=== PATIENT | female | born 1985 | race African-American/Black ===

== ENCOUNTER 2020-04-01 07:07 | Observation (INO) | payer MEDICAID, OTHER ==
[~2020-04-01] VITALS: Ht 165.1 cm; Wt 123.8 kg
[2020-04-01] MEDS ORDERED: PREN-96 PO (07:38)
== END 2020-04-01 10:04 | disposition home or self-care (01) | DRG 566 ==
LOC: LDRP 07:07
PROVIDERS: ADMIT Specialist; ATTEND Specialist
DX: O42.92 Full-term premature rupture of membranes, unspecified as to length of time between rupture and onset of labor (principal); Z3A.37 37 weeks gestation of pregnancy
CPT/HCPCS: 59025; 76818; 84112; G0378; Q0114

== ENCOUNTER 2020-04-02 04:25 | Inpatient (IN) | payer MEDICAID ==
[~2020-04-02] VITALS: Ht 165.1 cm; Wt 125.2 kg
[~2020-04-02 04:25] MED LIST: PREN-96 PO
[2020-04-02] MEDS ORDERED: LACT. RINGERS/OXYTOCIN 20UNITS 1,000 ML IV SCH (04:55)
[2020-04-02] MEDS ORDERED: METHYLERGONOVINE MALEATE 0.2 MG/ML AMP IM PRN (05:00)
[2020-04-02] MEDS ORDERED: LIDOCAINE 2%HCL (LOCAL ANESTH.) INJ 20ML MDV ID ONE (05:00)
[2020-04-02] MEDS ORDERED: DERMOPLAST 60ML BOTTLE TOP PRN (05:00)
[2020-04-02] MEDS ORDERED: CARBOPROST TROMETHAMINE 250 MCG/1ML VIAL IM PRN (05:00)
[2020-04-02] MEDS ORDERED: WITCH HAZEL-GLYCERIN PAD TOP PRN (05:00)
[2020-04-02] MEDS ORDERED: PHISODERM TOP SOLN 240ML BTL TOP PRN (05:00)
[2020-04-02] MEDS ORDERED: PENICILLIN G POT 5MIL/D5 50ML 50 ML IV ONE (05:00)
[2020-04-02] MEDS: LACTATED RINGER'S 1,000 ML IV SCH ×2 (05:26→09:44)
[2020-04-02] MEDS ORDERED: LACT. RINGERS/OXYTOCIN 20UNITS 500 ML IV PRN (06:15)
[2020-04-02] MEDS ORDERED: LACT. RINGERS/OXYTOCIN 20UNITS 1,000 ML IV PRN (06:15)
[2020-04-02 07:13] LABS: Basophils # (auto) 0 10 ^3/uL (0-0.2); Basophils % (auto) 0.2 % (0.0-2.0); Eosinophils # (auto) 0 10 ^3/uL (0-0.8); Eosinophils % (auto) 0.3 % (0.0-7.0); Hematocrit 40.4 % (36.0-46.0); Hemoglobin 13.8 g/dL (12.2-16.2); Lymphocytes # (auto) 2.1 10 ^3/uL (0.4-5.4); Lymphocytes % (auto) 19.6 % (10.0-50.0); Mean Corpuscular Hemoglobin 33.6 pg (28.0-32.0); Mean Corpuscular Hgb Conc. 34.2 g/dL (32.0-36.0); Mean Corpuscular Volume 98.2 fL (80.0-100.0); Monocytes # (auto) 0.7 10 ^3/uL (0-1.3); Monocytes % (auto) 6.7 % (0.0-12.0); Neutrophils # (auto) 7.8 10 ^3/uL (1.6-8.6); Neutrophils % (auto) 73.2 % (37.0-80.0); Platelet Count (auto) 185 10^3/uL (140-450); Red Blood Cells 4.11 10^6/uL (4.0-5.20); Red Cell Distribution Width 13.1 % (11.8-14.3); White Blood Cell 10.7 10^3/uL (4.4-10.8)
[2020-04-02 07:25] LABS: Albumin 2.9 g/dL (3.4-5.0); Calcium 8.6 mg/dL (8.5-10.1); Potassium 3.6 mmol/L (3.5-5.1)
[2020-04-02 07:28] LABS: INR 0.96 (0.9-1.15); Partial Thromboplastin Time 31.1 sec (23.64-32.05)
[2020-04-02 07:29] LABS: BUN/Creatinine Ratio 11.5; Bilirubin, Total 0.4 mg/dL (0.2-1.0); Total Protein 7.1 g/dL (6.4-8.2)
[2020-04-02] MEDS ORDERED: BUTORPHANOL TARTRATE 2 MG/1 ML VIAL IV ONE (07:30)
[2020-04-02] MEDS ORDERED: LACTATED RINGER'S 1,000 ML IV ONE (09:38)
[2020-04-02] MEDS ORDERED: NALOXONE HCL 0.4 MG/ML VIAL IV ONE (09:45)
[2020-04-02] MEDS ORDERED: fentaNYL CITRATE 100 MCG/2 ML VL IV ONE (09:45)
[2020-04-02] MEDS ORDERED: ePHEDrine SULFATE 50 MG/ML AMP IV ONE (09:45)
[2020-04-02] MEDS ORDERED: LIDOCAINE HCL 2 %PF INJ 10ML AMP IJ ONE (09:45)
[2020-04-02] MEDS ORDERED: ROPIVACAINE HCL 100 ML EPI SCH (09:45)
[2020-04-02] MEDS: PENICILLIN G POTASSIUM 2,500,000 UNITS in D5W 5% 50 ML IV SCH ×2 (09:52→13:52)
[2020-04-02 11:13] LABS: Urine Bacteria NONE SEEN /hpf (None Seen); Urine Blood Negative /uL (Negative); Urine Mucus FEW (None Seen); Urine Specific Gravity 1.013 (1.001-1.035); Urine WBC 1 /hpf (0 - 5)
[2020-04-02 11:25] LABS: Alcohol, Urine < 3.0 mg/dL (0-10); Amphetamine Screen, Urine NEGATIVE (NEGATIVE); Barbiturate Scree,Urine NEGATIVE (NEGATIVE); Benzodiazephine Screen, Urine NEGATIVE (NEGATIVE); Cannabinoid Screen, Urine NEGATIVE (NEGATIVE); Cocaine Screen, Urine NEGATIVE (NEGATIVE); Opiate Scree,Urine NEGATIVE (NEGATIVE); Phencyclidine Screen, Urine NEGATIVE (NEGATIVE)
--- NOTE | 2020-04-02 18:20 | NUR ---
Ambulation: Patient OOB with standby assistance by RN. Patient ambulated to bathroom with steady gait. Patient able to void 650ml without difficulty. [facility] teaching provided with returned demonstration by patient. Clean gown provided and bed linen changed. Patient ambulated back to bed with steady gait and no distress noted.
[2020-04-02] MEDS: IBUPROFEN 600 MG TAB PO PRN (22:13)
[2020-04-02 23:26] VITALS: BP 127/68
[2020-04-03 03:11] VITALS: BP 99/51
[2020-04-03] MEDS ORDERED: TETANUS-DIPTH-ACEL PERTUSSIS 0.5ML SYR Tdap IM ONE (04:00)
[2020-04-03 04:06] LABS: Rubella Antibodies, IgG 2.39 index (Immune >0.99)
[2020-04-03] MEDS: IBUPROFEN 600 MG TAB PO PRN (04:15)
[2020-04-03 05:07] LABS: RPR Non Reactive (Non Reactive)
[2020-04-03 07:00] VITALS: BP 128/58
[2020-04-03 11:00] VITALS: BP 118/56
--- NOTE | 2020-04-03 14:09 | NUR ---
Discharge: Reviewed discharge paperwork with patient. Educated on PPD results, and resources, [facility], scheduled appointment with Dr Gibbons. Verbalized understanding of all information. All questions and concerns addressed.
[2020-04-03 14:55] VITALS: BP 118/56
[2020-04-03 19:00] VITALS: BP 119/56
--- NOTE | 2020-04-03 19:10 | NUR ---
Discharge: Patient taken to vehicle via wheelchair with all personal belongings, accompanied by staff and family member. No distress noted at time of departure, no adverse changes in status since initial assessment.
== END 2020-04-03 19:10 | disposition home or self-care (01) | DRG 560 ==
LOC: LDRP 04:25 → OBSVTOIN 04:26 → LDRP 04:59
PROVIDERS: ADMIT Specialist; ATTEND Specialist
PROC: 10E0XZZ Delivery of Products of Conception, External Approach (ICD-10-PCS; principal; 2020-04-02)
PROC: 3E0R3BZ Introduction of Anesthetic Agent into Spinal Canal, Percutaneous Approach (ICD-10-PCS; 2020-04-02)
PROC: 00HU33Z Insertion of Infusion Device into Spinal Canal, Percutaneous Approach (ICD-10-PCS; 2020-04-02)
PROC: 10H07YZ Insertion of Other Device into Products of Conception, Via Natural or Artificial Opening (ICD-10-PCS; 2020-04-02)
DX: O80 Encounter for full-term uncomplicated delivery (principal); Z37.0 Single live birth; Z3A.38 38 weeks gestation of pregnancy; Z11.59 Encounter for screening for other viral diseases
CPT/HCPCS: 36415; 59025; 59409; 62282; 76805; 76818; 80053; 80307; 81001; 81002; 84112; 85025; 85610; 85730; 86592; 86703; 86762; 86850; 86900; 86901; 87340; 90715; 96360; 96361; 96365; 96366; 96372; 96374; G0378; J2540; J2590; J7060